=== PATIENT | male | born 1935 | race Caucasian/White ===

== ENCOUNTER 2019-03-02 08:51 | Inpatient (IN) | payer MEDICARE, BC ==
[~2019-03-02] VITALS: Ht 170.2 cm; Wt 72.6 kg
[~2019-03-02 08:51] MED LIST: ATOR20TA PO; GLIP10TA11 PO; [UNRECOGNIZED DRUG - OTHER] SQ
--- NOTE | 2019-03-02 08:55 | NUR ---
Dr Oquendo at the bedside for MSE.
[2019-03-02] MEDS ORDERED: MORPHINE SULFATE 2 MG/1 ML DISP.SYRIN IM ONE (09:00)
[2019-03-02] MEDS ORDERED: MORPHINE SULFATE 4 MG/1 ML DISP.SYRIN ONE (09:08)
[2019-03-02] MEDS ORDERED: MORPHINE SULFATE 2 MG/1 ML DISP.SYRIN ONE (09:08)
--- NOTE | 2019-03-02 09:42 | NUR ---
pt here but is not sure about the meds and dosages. will go back home and bring the meds bottles.
[2019-03-02 09:58] LABS: BASOPHILS % (AUTO) 0.4 % (0.0-2.0); CARBON DIOXIDE 24 mmol/L (21-32); CHLORIDE 107 mmol/L (98-107); CREATININE 2.7 mg/dL (0.6-1.3); EOSINOPHILS # (AUTO) 0.3 K/uL (0.0-0.7); EOSINOPHILS % (AUTO) 3.5 % (0.0-7.0); GLUCOSE 159 mg/dL (74-106); HEMATOCRIT 36.5 % (36.7-47.1); LYMPHOCYTES # (AUTO) 1.1 K/uL (20.0-40.0); LYMPHOCYTES % (AUTO) 11.7 % (20.5-51.5); MEAN CORPUSCULAR HGB CONC 33 g/dL (32.5-36.3); MEAN CORPUSCULAR VOLUME 91.4 fL (73.0-96.2); MONOCYTES # (AUTO) 0.6 K/uL (2.0-10.0); MONOCYTES % (AUTO) 6.1 % (0.0-11.0); NEUTROPHILS # (AUTO) 7.6 K/uL (1.8-8.9); NEUTROPHILS % (AUTO) 78.3 % (38.5-71.5); PLATELET COUNT (AUTO) 203 K/uL (152-348); POTASSIUM 4.2 mmol/L (3.5-5.1); RED BLOOD CELL COUNT(AUTO) 3.99 MIL/uL (4.06-5.63); UREA NITROGEN, BLOOD 45 mg/dL (7-18); WHITE BLOOD COUNT (AUTO) 9.7 K/uL (3.6-10.2)
--- NOTE | 2019-03-02 10:09 | NUR ---
Patient is resting comfortably in bed with eyes closed.NAD noted.
--- NOTE | 2019-03-02 10:12 | NUR ---
Paged [employer], awaiting call back from Dr Hess.
[2019-03-02 10:14] LABS: ALANINE AMINOTRANSFERASE 13 U/L (16-63); ALKALINE PHOSPHATASE 92 U/L (50-136); ASPARTATE AMINOTRANSFERASE 8 U/L (15-37); BILIRUBIN,DIRECT 0.1 mg/dL (0.0-0.2); BILIRUBIN,TOTAL 0.5 mg/dL (0.2-1.0); TOTAL PROTEIN, SERUM 7.3 g/dL (6.4-8.2)
--- NOTE | 2019-03-02 10:14 | NUR ---
Dr Hess called back and spoke to Dr Oquendo for admit.
[2019-03-02] MEDS ORDERED: HYDROMORPHONE 1 MG/1 ML DISP.SYRIN ONE (10:20)
--- NOTE | 2019-03-02 10:23 | NUR ---
Paged Dr Thomas for Orth consult.
[2019-03-02] MEDS ORDERED: HYDROMORPHONE 1 MG/1 ML DISP.SYRIN IV ONE (10:30)
[2019-03-02] MEDS ORDERED: ONDANSETRON 4 MG/2 ML VIAL IV PRN (10:30)
[2019-03-02] MEDS ORDERED: ACETAMINOPHEN 325 MG TABLET PO PRN (10:30)
[2019-03-02] MEDS ORDERED: Z GUARD REMEDY PASTE 57 GM TUBE TOP PRN (10:30)
[2019-03-02] MEDS ORDERED: MAGNESIUM HYDROXIDE 30 ML LIQUID UDC PO PRN (10:30)
[2019-03-02] MEDS ORDERED: HYDROCODONE/APAP 5-325MG TABLET PO PRN (10:30)
--- NOTE | 2019-03-02 10:42 | NUR ---
Dr Oquendo states there is no indication to insert F/C for pt at this point.
[2019-03-02] MEDS ORDERED: HUM10VIA3 SUBCUT (10:47)
[2019-03-02] MEDS ORDERED: CARV3.122 PO (10:47)
[2019-03-02] MEDS ORDERED: ATOR40TA PO (10:47)
[2019-03-02] MEDS ORDERED: CLOP75TA15 PO (10:47)
[2019-03-02] MEDS ORDERED: GLIM1TAB3 PO (10:47)
[2019-03-02 11:00] VITALS: BP 209/87
--- NOTE | 2019-03-02 11:00 | NUR ---
RECEIVED PATIENT FOR ADMISSION 83 YEARS OLD MALE BY [facility] WITH DX OF LEFT HIP FRACTURE PLACED INTO BED FIXED AND MADE COMFORTABLE PATIENT IS ALERT AND ORIENTED STATED THAT AT TIMES HE IS FORGETFUL BUT NOT NOTED AT THIS TIME.LEFT FOREARM WITH HEPLOCK INTACT WITH NO S/S OF INFILTERATION ON SITE PATIENTS GIRLFRIEND GRAYSON HERE AT THE BEDSIDE AND ASSISTED WITH THE ADMISSION QUESTIONAIRES ORIENTED TO HOSPITAL PROTOCOL MADE COMFORTABLE CALLED DR ESTEVES AND LEFT HIM A MESSAGE FOR ADMISSION ORDERS WILL CONTINUE TO OBSERVE.
[2019-03-02 15:18] VITALS: BP 136/70
--- NOTE | 2019-03-02 18:11 | NUR ---
RESTING DENIES DISCOMFORTS STATED OKAY AT THIS TIME WILL CONTINUE TO OBSERVE
[2019-03-02 19:48] VITALS: BP 129/74
[2019-03-02] MEDS ORDERED: DEXTROSE 50% 50 ML DISP.SYRIN IV PRN (20:15)
[2019-03-02] MEDS: MORPHINE SULFATE 2 MG/1 ML DISP.SYRIN IV PRN (20:20)
[2019-03-02] MEDS: IV 1/2NS 1000 ML 1,000 ML IV PRN (20:21)
[2019-03-02] MEDS: BLOOD SUGAR DIAGNOSTIC 1 EACH STRIP VI SCH (20:34)
[2019-03-02] MEDS: INSULIN REGULAR, HUMAN 300 UNIT/3 ML VIAL SQ PRN (20:39)
[2019-03-02] MEDS ORDERED: TEMAZEPAM 7.5 MG CAPSULE PO ONE (21:00)
[2019-03-03] VITALS: BP 132/70
[2019-03-03] MEDS: MORPHINE SULFATE 2 MG/1 ML DISP.SYRIN IV PRN ×5 (00:55→22:53)
[2019-03-03 04:05] VITALS: BP 114/59
[2019-03-03 06:26] LABS: BASOPHILS % (AUTO) 0.2 % (0.0-2.0); EOSINOPHILS # (AUTO) 0.1 K/uL (0.0-0.7); HEMATOCRIT 29.6 % (36.7-47.1); HEMOGLOBIN 9.6 g/dL (12.5-16.3); LYMPHOCYTES # (AUTO) 1.2 K/uL (20.0-40.0); MEAN CORPUSCULAR HEMOGLOBIN 29.8 uug (23.8-33.4); MEAN CORPUSCULAR HGB CONC 33 g/dL (32.5-36.3); MEAN CORPUSCULAR VOLUME 91.5 fL (73.0-96.2); MONOCYTES # (AUTO) 1.2 K/uL (2.0-10.0); MONOCYTES % (AUTO) 10.7 % (0.0-11.0); NEUTROPHILS # (AUTO) 8.7 K/uL (1.8-8.9); NEUTROPHILS % (AUTO) 77.1 % (38.5-71.5); PLATELET COUNT (AUTO) 171 K/uL (152-348); RED BLOOD CELL COUNT(AUTO) 3.23 MIL/uL (4.06-5.63); WHITE BLOOD COUNT (AUTO) 11.3 K/uL (3.6-10.2)
[2019-03-03 06:41] LABS: ALANINE AMINOTRANSFERASE 12 U/L (16-63); ALKALINE PHOSPHATASE 61 U/L (50-136); ASPARTATE AMINOTRANSFERASE 9 U/L (15-37); BILIRUBIN,TOTAL 0.6 mg/dL (0.2-1.0); CARBON DIOXIDE 26 mmol/L (21-32); CHLORIDE 106 mmol/L (98-107); CHOLESTEROL 153 mg/dL (<200); CREATININE 2.8 mg/dL (0.6-1.3); GLUCOSE 165 mg/dL (74-106); HDL CHOLESTEROL 47 mg/dL (40-60); MAGNESIUM 2.1 mg/dL (1.8-2.4); PHOSPHOROUS 3.9 mg/dL (2.5-4.9); POTASSIUM 5.1 mmol/L (3.5-5.1); TOTAL PROTEIN, SERUM 6.1 g/dL (6.4-8.2); TRIGLYCERIDES 103 MG/DL (30-150); UREA NITROGEN, BLOOD 54 mg/dL (7-18)
[2019-03-03] MEDS: BLOOD SUGAR DIAGNOSTIC 1 EACH STRIP VI SCH ×4 (06:43→21:33)
--- NOTE | 2019-03-03 06:48 | NUR ---
Patient slept well throughout the night, no distress noted. With complaints of pain relieved by prn pain medications. Attended all needs. Insulin sliding scale was started as ordered by medical provider, patient's questions about medication addressed. Ensured safety and comfort.
--- NOTE | 2019-03-03 07:15 | NUR ---
RECEIVED PATIENT AWAKE ALERT AND ORIENTED ASSISTED WITH REPOSITIONING Q2H REMAIN ON IVF ORDERED WITH NO S/S OF INFILTERATION ON SITE LEFT HIP S/P FRACTURE AWAITING FOR DR HENDERSON TO SEE PATIENT TODAY.IVF IN PROGRESS ORDERED WITH NO S/S OF INFILTERATION ON SITE CALL LIGHTS AND PERSONAL BELONGINGS ARE WITHIN EASY REACH AT THIS TIME WILL CONTINUE TO OBSERVE.
[2019-03-03 07:22] LABS: THYROID STIMULATING HORMONE 1.696 mIU/mL (0.358-3.740)
[2019-03-03] MEDS: INSULIN REGULAR, HUMAN 300 UNIT/3 ML VIAL SQ PRN ×2 (08:51→16:48)
[2019-03-03] MEDS: IV 1/2NS 1000 ML 1,000 ML IV PRN ×2 (09:37→21:43)
[2019-03-03 11:30] VITALS: BP 108/53
--- NOTE | 2019-03-03 11:39 | NUR ---
BLOOD SUGAR IS 139 PATIENT IS NPO AT THIS TIME WITH HALF NS RUNNING PATIENT REFUSED INSULIN COVERAGE PATIENTS RIGHT TO REFUSE RESPECTED.
--- NOTE | 2019-03-03 12:45 | NUR ---
CALL RECEIVED FROM YVES FROM SURGERY STATED THAT PATIENTS SURGERY HAS BEEN CANCELLED TODAY WILL BE TOMORROW TO FOLLOW AFTER HIS 1000 CASE PATIENT NOTIFIED AND LUNCH SERVED.
--- NOTE | 2019-03-03 13:45 | NUR ---
DR HENDERSON HERE SPOKE WITH PATIENT AND WROTE OUT ORDER TO OBTAIN CONSCENT PATIENT AWARE AND CONSCENT OBTAINED FOR PROPOSED SURGERY TOMORROW.
[2019-03-03 16:14] VITALS: BP 122/43
[2019-03-03 16:56] LABS: *BILIRUBIN,URIN NEGATIVE (NEGATIVE); *BLOOD, URINE 2+ (NEGATIVE); *CLARITY,URINE CLEAR (CLEAR); *COLOR,URINE YELLOW (YELLOW); *KETONES,URINE NEGATIVE (NEGATIVE); *UROBILINOGEN,URINE 0.2 E.U./dl (NORMAL); LEUKOCYTE ESTERASE ,URINE NEGATIVE (NEGATIVE); NITRITE, URINE NEGATIVE (NEGATIVE); PH,URINE 5.5 (5.0-8.0); UGLUCOSE NEGATIVE (NEGATIVE)
[2019-03-03 17:04] LABS: MUCUS,URINE FEW /LPF (0-FEW); SQUAMOUS EPITHELIAL CELL,UR FEW /HPF (NONE SEEN); WBC,URINE 0-3 /HPF (0-3)
[2019-03-03 17:07] LABS: *CREATININE,URINE 95.6 mg/dL (30-125)
[2019-03-03 18:23] LABS: HEMATOCRIT 28.3 % (36.7-47.1); HEMOGLOBIN 9.1 g/dL (12.5-16.3)
[2019-03-03 19:53] VITALS: BP 141/67
[2019-03-03] MEDS ORDERED: TEMAZEPAM 7.5 MG CAPSULE PO PRN (21:30)
[2019-03-03] MEDS ORDERED: DEXTROSE 50% 50 ML DISP.SYRIN IV PRN (21:45)
[2019-03-03] MEDS ORDERED: INSULIN REGULAR, HUMAN 300 UNIT/3 ML VIAL SQ PRN (21:45)
[2019-03-04] VITALS (9 sets, daily range): BP systolic 123–146; BP diastolic 55–69
[2019-03-04] MEDS: MORPHINE SULFATE 2 MG/1 ML DISP.SYRIN IV PRN ×2 (03:55→08:32)
[2019-03-04] MEDS: BLOOD SUGAR DIAGNOSTIC 1 EACH STRIP VI SCH ×4 (06:11→21:00)
--- NOTE | 2019-03-04 06:25 | NUR ---
pt rested well in between care; no acute distress; kept NPO fr midnight; medicated for pain; occasionally refusing to be turned; apply ice to to left hip; needs attended; refused condom cath; at this time pt refused to have his pad changed; continue to monitor; continue plan of care.
[2019-03-04 06:37] LABS: BASOPHILS % (AUTO) 0.3 % (0.0-2.0); EOSINOPHILS # (AUTO) 0.1 K/uL (0.0-0.7); HEMATOCRIT 30.3 % (36.7-47.1); HEMOGLOBIN 9.8 g/dL (12.5-16.3); LYMPHOCYTES % (AUTO) 8.6 % (20.5-51.5); MEAN CORPUSCULAR HEMOGLOBIN 29.7 uug (23.8-33.4); MEAN CORPUSCULAR HGB CONC 33 g/dL (32.5-36.3); MEAN CORPUSCULAR VOLUME 91.4 fL (73.0-96.2); MONOCYTES # (AUTO) 1.4 K/uL (2.0-10.0); MONOCYTES % (AUTO) 11.9 % (0.0-11.0); NEUTROPHILS # (AUTO) 9.1 K/uL (1.8-8.9); NEUTROPHILS % (AUTO) 78.2 % (38.5-71.5); PLATELET COUNT (AUTO) 161 K/uL (152-348); RED BLOOD CELL COUNT(AUTO) 3.32 MIL/uL (4.06-5.63); WHITE BLOOD COUNT (AUTO) 11.6 K/uL (3.6-10.2)
[2019-03-04 06:49] LABS: ALANINE AMINOTRANSFERASE 12 U/L (16-63); ALKALINE PHOSPHATASE 63 U/L (50-136); ASPARTATE AMINOTRANSFERASE 10 U/L (15-37); BILIRUBIN,TOTAL 0.6 mg/dL (0.2-1.0); CARBON DIOXIDE 25 mmol/L (21-32); CHLORIDE 103 mmol/L (98-107); GLUCOSE 161 mg/dL (74-106); PHOSPHOROUS 3.7 mg/dL (2.5-4.9); POTASSIUM 4.6 mmol/L (3.5-5.1); TOTAL PROTEIN, SERUM 6.5 g/dL (6.4-8.2); UREA NITROGEN, BLOOD 62 mg/dL (7-18)
--- NOTE | 2019-03-04 07:10 | NUR ---
RECEIVED PATIENT IN BED AWAKE ALERT AND ORIENTED REMAIN ON IVF ORDERED WITH NO S/S OF INFILTERATION ON SITE.PATIENT REMAINS NPO PENDING HIP SURGERY TODAY REINSTRUCTED AND AWARE CALL LIGHTS AND PERSONAL BELONGINGS PLACED WITHIN EASY REACH MADE COMFORTABLE AND WILL CONTINUE TO OBSERVE.
[2019-03-04] MEDS ORDERED: POLYMYXIN B SULFATE 500,000 UNITS, BACITRACIN 50,000 UNITS, NORMAL SALINE 20 ML MC ONE ×3 (07:45)
[2019-03-04] MEDS ORDERED: VANCOMYCIN 1000 MG VIAL ONE (08:18)
[2019-03-04] MEDS ORDERED: FENTANYL CITRATE 100 MCG/2 ML AMPUL ONE ×2 (09:56→12:01)
--- NOTE | 2019-03-04 10:00 | NUR ---
PATIENT PICKED UP BY BED TO SURGERY ORDERED IN SATISFACTORY CONDITION
[2019-03-04] MEDS ORDERED: CEFAZOLIN 1 G VIAL IM ONE (11:35)
[2019-03-04] MEDS ORDERED: SUCCINYLCHOLINE CHLORIDE 200 MG/10 ML VIAL IV ONE (11:35)
[2019-03-04] MEDS ORDERED: LIDOCAINE-MPF 2% 5 ML VIAL IJ ONE (11:35)
[2019-03-04] MEDS ORDERED: PROPOFOL 200 MG/20 ML BOTTLE IV ONE (11:35)
[2019-03-04] MEDS ORDERED: EPHEDRINE SULFATE 50 MG/ML AMPUL IM ONE (11:35)
[2019-03-04] MEDS ORDERED: IV NORMAL SALINE 1000 ML BAG IV ONE (11:35)
[2019-03-04] MEDS ORDERED: ONDANSETRON 4 MG/2 ML VIAL ONE (12:41)
--- NOTE | 2019-03-04 12:50 | NUR ---
PATIENT RETURNED BACK FROM SURGERY BY BED AWAKE ALERT AND ORIENTED WITH O2 AT 2L/M BY NASAL CANULA WITH NO SHORTNESS OF BREATH AT THIS TIME LEFT HIP WITH DRESSING INTACT AND A MEPILEX ON THE LEFT THIGH WITH NO DRAINAGE AT THIS TIME CIRCULATION IS ADEQUATE ABLE TO WIGGLE TOES MADE COMFORTABLE AND WILL CONTINUE TO OBSERVE.
[2019-03-04] MEDS ORDERED: CEFAZOLIN 1 G in PREMIXED 1 EACH IV SCH ×2 (13:00→14:00)
[2019-03-04] MEDS: MORPHINE SULFATE 4 MG/1 ML DISP.SYRIN IV PRN ×3 (13:43→21:05)
[2019-03-04] MEDS: IV D5W-0.45% NS +20 KCL 1,000 ML IV PRN (13:43)
--- NOTE | 2019-03-04 13:45 | NUR ---
PATIENT STATED HAVING SEVERE PAIN LEFT HIP ICE PACK IS IN PLACE MEDICATED WITH MORPHINE ORDERED TOLERATING SOME FLUIDS STATED NOT HUNGRY AT THIS TIME.
[2019-03-04] MEDS ORDERED: DEXTROSE 50% 50 ML DISP.SYRIN IV PRN (16:30)
[2019-03-04] MEDS: INSULIN REGULAR, HUMAN 300 UNIT/3 ML VIAL SQ PRN ×2 (16:39→21:05)
[2019-03-04] MEDS: CEFAZOLIN 1 G in PREMIXED 1 EACH IV SCH (17:14)
--- NOTE | 2019-03-04 18:00 | NUR ---
RESTING WAS MEDICATED WITH MORPHINE AND THEN TURNED AND REPOSITIONED IV ATB ORDERED WITH NO ADVERSE OR ALLERGIC REACTIONS AT THIS TIME.
--- NOTE | 2019-03-04 19:20 | NUR ---
RECEIVED PT AWAKE, ALERT AND ORIENTED X4. PT SHOWS NO SIGNS OF ACUTE DISTRESS. IV INTACT. SAFETY AND COMFORT PROVIDED. WILL CONTINUE TO MONITOR.
[2019-03-04] MEDS: ATORVASTATIN 40 MG TABLET PO SCH (20:58)
[2019-03-05 00:20] VITALS: BP 130/66
[2019-03-05] MEDS: CEFAZOLIN 1 G in PREMIXED 1 EACH IV SCH (01:21)
[2019-03-05 04:29] VITALS: BP 135/60
[2019-03-05] MEDS: IV D5W-0.45% NS +20 KCL 1,000 ML IV PRN ×2 (04:43→19:01)
[2019-03-05] MEDS: MORPHINE SULFATE 4 MG/1 ML DISP.SYRIN IV PRN ×3 (04:48→21:38)
--- NOTE | 2019-03-05 05:58 | NUR ---
PT SLEPT INTERMITTENTLY. PT SHOWS NO SIGNS OF ACUTE DISTRESS. PT IV INTACT. INCENTIVE SPIROMETER GIVEN AND TEACH THE PT HOW TO DO IT. SAFETY AND COMFORT PROVIDED. PRESCRIBED MEDICATION GIVEN AND PT TOLERATED IT WELL. ALL NEEDS ARE MET. WILL ENDORSE TO INCOMING NURSE FOR CONTINUITY OF CARE.
[2019-03-05 06:30] LABS: HEMATOCRIT 26.9 % (36.7-47.1); HEMOGLOBIN 8.9 g/dL (12.5-16.3)
[2019-03-05] MEDS: BLOOD SUGAR DIAGNOSTIC 1 EACH STRIP VI SCH ×4 (06:37→20:06)
[2019-03-05] MEDS: ASPIRIN EC 81 MG TABLET.DR PO SCH (08:28)
[2019-03-05] MEDS: INSULIN REGULAR, HUMAN 300 UNIT/3 ML VIAL SQ PRN ×4 (08:30→20:08)
[2019-03-05] MEDS: HYDROCODONE/APAP 10-325 MG TABLET PO PRN (09:18)
[2019-03-05 11:30] VITALS: BP 123/52
[2019-03-05] MEDS ORDERED: ENOXAPARIN SODIUM 40 MG/0.4 ML DISP.SYRIN SQ SCH (13:15)
[2019-03-05] MEDS: ENOXAPARIN SODIUM 30 MG/0.3 ML DISP.SYRIN SUBCUT SCH (14:21)
[2019-03-05 16:10] VITALS: BP 139/61
--- NOTE | 2019-03-05 18:39 | NUR ---
Patient AO4, No distress, stood up with PT today, ROM is done , pain med was given in the am after patient said I dont want to take med yet, slept on an off, icing on the leg help. bs maintained with insulin, safety maintained this shift
--- NOTE | 2019-03-05 19:20 | NUR ---
RECEIVED PATIENT LYING IN BED. ASLEEP BUT EASILY AROUSE TO VERBAL STIMULI. AOX4. IN NO ACUTE DISTRESS. APPEARS COMFORTABLE AT THIS TIME. IV SITE ON RIGHT WRIST INTACT AND PATENT. IVF INFUSING. SAFETY MEASURE INITIATED AND CALL [facility] WITHIN REACH.
[2019-03-05 20:00] VITALS: BP 124/63
--- NOTE | 2019-03-05 20:00 | NUR ---
PATIENT O2 SAT AT 88% ON RA. PLACE ON O2 AT 2LPM VIA NC AND O2 SAT INCREASED TO 95%. HOB KEPT SLIGHTLY ELEVATED. CONTINUE TO MONITOR.
[2019-03-05] MEDS: ATORVASTATIN 40 MG TABLET PO SCH (20:01)
[2019-03-06] VITALS: BP 124/66
[2019-03-06 05:24] VITALS: BP 135/67
--- NOTE | 2019-03-06 06:19 | NUR ---
AOX4. IN NO ACUTE DISTRESS. O2 AT 2LPM VIA NC IN PLACE. O2 SAT AT 95%. IV SITE ON RIGHT WRIST INTACT AND PATENT. IVF INFUSING. LEFT HIP WITH DRESSING INTACT. MORPHINE PRN GIVEN FOR COMPLAIN OF PAIN AND EFFECTIVE. SAFETY MEASURE MAINTAINED AND CALL [facility] WITHIN REACH.
[2019-03-06 06:43] LABS: BASOPHILS % (AUTO) 0.3 % (0.0-2.0); EOSINOPHILS % (AUTO) 0.3 % (0.0-7.0); HEMATOCRIT 27.7 % (36.7-47.1); LYMPHOCYTES # (AUTO) 0.7 K/uL (20.0-40.0); LYMPHOCYTES % (AUTO) 5.3 % (20.5-51.5); MEAN CORPUSCULAR HEMOGLOBIN 30.5 uug (23.8-33.4); MEAN CORPUSCULAR HGB CONC 32 g/dL (32.5-36.3); MONOCYTES # (AUTO) 1.4 K/uL (2.0-10.0); MONOCYTES % (AUTO) 11.3 % (0.0-11.0); NEUTROPHILS # (AUTO) 10.5 K/uL (1.8-8.9); NEUTROPHILS % (AUTO) 82.8 % (38.5-71.5); PLATELET COUNT (AUTO) 182 K/uL (152-348); RED BLOOD CELL COUNT(AUTO) 2.95 MIL/uL (4.06-5.63); WHITE BLOOD COUNT (AUTO) 12.7 K/uL (3.6-10.2)
[2019-03-06] MEDS: BLOOD SUGAR DIAGNOSTIC 1 EACH STRIP VI SCH ×2 (06:58→12:31)
[2019-03-06 07:02] LABS: ALKALINE PHOSPHATASE 75 U/L (50-136); BILIRUBIN,TOTAL 0.5 mg/dL (0.2-1.0); CHLORIDE 101 mmol/L (98-107); MAGNESIUM 1.9 mg/dL (1.8-2.4); POTASSIUM 5.6 mmol/L (3.5-5.1); TOTAL PROTEIN, SERUM 6.6 g/dL (6.4-8.2); UREA NITROGEN, BLOOD 67 mg/dL (7-18)
[2019-03-06 07:16] LABS: ALANINE AMINOTRANSFERASE 6 U/L (16-63); ASPARTATE AMINOTRANSFERASE 10 U/L (15-37); CARBON DIOXIDE 20 mmol/L (21-32); CREATININE 3.2 mg/dL (0.6-1.3)
[2019-03-06 07:19] LABS: GLUCOSE 301 mg/dL (74-106)
--- NOTE | 2019-03-06 07:20 | NUR ---
CALL FROM LAB/MARY FOR CRITICAL LAB VALUE FOR GLUCOSE OF 301. CARMELITA RILEY FROM DAY SHIFT MADE AWARE AND INSTRUCTED TO FOLLOW UP WITH MD AND STATES UNDERSTANDING.
[2019-03-06] MEDS ORDERED: SODIUM POLYSTYRENE SULFONATE 15 G/60 ML LIQUID UDC PO ONE (08:00)
--- NOTE | 2019-03-06 08:00 | NUR ---
Received pt. resting in bed alert oriented x4. Pt. has IV in R wrist 22 gauge intact patent. Pt. on room air. Pt. states he has pain in l hip. Will assess pain and give PRN pain medication. Safety measures in place. call light within reach. will continue to monitor pt.
[2019-03-06] MEDS: ENOXAPARIN SODIUM 30 MG/0.3 ML DISP.SYRIN SUBCUT SCH (08:45)
[2019-03-06] MEDS: INSULIN REGULAR, HUMAN 300 UNIT/3 ML VIAL SQ PRN ×2 (08:46→12:37)
[2019-03-06] MEDS: HYDROCODONE/APAP 10-325 MG TABLET PO PRN (08:47)
[2019-03-06] MEDS: ASPIRIN EC 81 MG TABLET.DR PO SCH (08:47)
--- NOTE | 2019-03-06 09:30 | NUR ---
Critical lab value of glucose reported to ACTING INSTRUCTOR Amauri Brooks. No new orders
[2019-03-06] MEDS ORDERED: Morphine Sulfate Inj IV (11:29)
[2019-03-06] MEDS ORDERED: HYDR-3980 PO (11:29)
[2019-03-06] MEDS ORDERED: ENOX30DI SUBCUT (11:29)
[2019-03-06 11:51] VITALS: BP 128/60
[2019-03-06] MEDS ORDERED: ENSURE ENLIVE (VAN) 240 ML LIQUID PO SCH (12:15)
--- NOTE | 2019-03-06 13:31 | NUR ---
Pt. to be discharged to ARU. Pt. had PT twice today and will be discharged to ARU later today. All discharge paperwork signed and completed. All belongings sent home with significant other. Belongings list signed. Will call ARU to give report. Pt. compliant with plan of care and is updated on plan.
--- NOTE | 2019-03-06 13:48 | NUR ---
report given to CARMELITA izaguirre in ARU.
== END 2019-03-06 14:15 | DRG 480 ==
LOC: ER 08:53 → MEDSURG3 10:32 → TELE3 11:33 → MEDSURG3 03-05 14:00
PROVIDERS: ADMIT Internal Medicine; ATTEND Internal Medicine
PROC: 0QS706Z Reposition Left Upper Femur with Intramedullary Internal Fixation Device, Open Approach (ICD-10-PCS; principal; 2019-03-04)
DX: M80.052A Age-related osteoporosis with current pathological fracture, left femur, initial encounter for fracture (principal); N17.0 Acute kidney failure with tubular necrosis; E87.1 Hypo-osmolality and hyponatremia; N18.4 Chronic kidney disease, stage 4 (severe); W01.0XXA Fall on same level from slipping, tripping and stumbling without subsequent striking against object, initial encounter; Y93.H2 Activity, gardening and landscaping; Y92.017 Garden or yard in single-family (private) house as the place of occurrence of the external cause; E78.5 Hyperlipidemia, unspecified; E11.22 Type 2 diabetes mellitus with diabetic chronic kidney disease; I12.9 Hypertensive chronic kidney disease with stage 1 through stage 4 chronic kidney disease, or unspecified chronic kidney disease; Z79.84 Long term (current) use of oral hypoglycemic drugs; E11.319 Type 2 diabetes mellitus with unspecified diabetic retinopathy without macular edema; N25.0 Renal osteodystrophy; E11.51 Type 2 diabetes mellitus with diabetic peripheral angiopathy without gangrene; Z98.62 Peripheral vascular angioplasty status; I25.10 Atherosclerotic heart disease of native coronary artery without angina pectoris; I45.10 Unspecified right bundle-branch block; E87.5 Hyperkalemia; Z79.899 Other long term (current) drug therapy; Z91.81 History of falling; Z79.82 Long term (current) use of aspirin; D64.9 Anemia, unspecified
CPT/HCPCS: 36415; 70030-TC; 71045; 73502; 73503; 83735; 84100; 84156; 84300; 84443; 85014; 85018; 85025; 85730; 93005; 93307; A4649; A4663; C1769; G0378; J0330; J0690; J1170; J1650; J1815; J2270; J2405; J3010; J3370; J3490; J7030

== ENCOUNTER 2019-03-06 14:22 | Inpatient (IN) | payer MEDICARE, BC ==
[~2019-03-06] VITALS: Ht 170.2 cm; Wt 72.6 kg
[~2019-03-06 14:22] MED LIST changes: +ATOR40TA PO; +CARV3.122 PO; +CLOP75TA15 PO; +ENOX30DI SUBCUT; +GLIM1TAB3 PO; +HUM10VIA3 SUBCUT; +HYDR-3980 PO; +Morphine Sulfate Inj IV
[2019-03-06 16:47] VITALS: BP 129/63
[2019-03-06] MEDS ORDERED: DEXTROSE 50% 50 ML DISP.SYRIN IV PRN (17:15)
[2019-03-06] MEDS: HYDROCODONE/APAP 10-325 MG TABLET PO PRN (18:09)
[2019-03-06] MEDS ORDERED: MAGNESIUM HYDROXIDE 30 ML LIQUID UDC PO PRN (19:30)
[2019-03-06 20:11] VITALS: BP 147/60
[2019-03-06] MEDS: ATORVASTATIN 40 MG TABLET PO SCH (21:26)
[2019-03-06] MEDS: BISACODYL 10 MG SUPP.RECT RC PRN (21:26)
[2019-03-06] MEDS: DOCUSATE SODIUM 100 MG CAPSULE PO SCH (21:26)
[2019-03-06] MEDS: BLOOD SUGAR DIAGNOSTIC 1 EACH STRIP VI SCH (21:29)
[2019-03-06] MEDS: INSULIN REGULAR, HUMAN 300 UNIT/3 ML VIAL SQ PRN (21:30)
[2019-03-07] MEDS: HYDROCODONE/APAP 10-325 MG TABLET PO PRN ×4 (03:28→17:17)
[2019-03-07 05:39] VITALS: BP 142/70
[2019-03-07] MEDS: BLOOD SUGAR DIAGNOSTIC 1 EACH STRIP VI SCH ×4 (06:31→20:23)
[2019-03-07 07:49] LABS: BASOPHILS % (AUTO) 0.1 % (0.0-2.0); EOSINOPHILS % (AUTO) 0.2 % (0.0-7.0); HEMATOCRIT 25.3 % (36.7-47.1); HEMOGLOBIN 8.3 g/dL (12.5-16.3); LYMPHOCYTES # (AUTO) 0.8 K/uL (20.0-40.0); LYMPHOCYTES % (AUTO) 5.1 % (20.5-51.5); MEAN CORPUSCULAR HGB CONC 33 g/dL (32.5-36.3); MEAN CORPUSCULAR VOLUME 91.5 fL (73.0-96.2); MONOCYTES # (AUTO) 1.4 K/uL (2.0-10.0); MONOCYTES % (AUTO) 8.9 % (0.0-11.0); NEUTROPHILS # (AUTO) 13.5 K/uL (1.8-8.9); NEUTROPHILS % (AUTO) 85.7 % (38.5-71.5); PLATELET COUNT (AUTO) 227 K/uL (152-348); RED BLOOD CELL COUNT(AUTO) 2.76 MIL/uL (4.06-5.63); WHITE BLOOD COUNT (AUTO) 15.8 K/uL (3.6-10.2)
[2019-03-07 07:58] LABS: CARBON DIOXIDE 22 mmol/L (21-32); CHLORIDE 102 mmol/L (98-107); GLUCOSE 221 mg/dL (74-106); POTASSIUM 4.2 mmol/L (3.5-5.1); UREA NITROGEN, BLOOD 70 mg/dL (7-18)
[2019-03-07 08:00] VITALS: BP 137/72
[2019-03-07] MEDS: DOCUSATE SODIUM 100 MG CAPSULE PO SCH ×2 (08:30→20:23)
[2019-03-07] MEDS: CARVEDILOL 3.125 MG TABLET PO SCH ×2 (08:30→17:16)
[2019-03-07] MEDS: CLOPIDOGREL 75 MG TABLET PO SCH (08:31)
[2019-03-07] MEDS: glipiZIDE 10 MG TABLET PO SCH (08:31)
[2019-03-07] MEDS: INSULIN REGULAR, HUMAN 300 UNIT/3 ML VIAL SQ PRN ×4 (08:46→20:24)
[2019-03-07] MEDS: ENOXAPARIN SODIUM 30 MG/0.3 ML DISP.SYRIN SUBCUT SCH (08:48)
[2019-03-07 18:08] LABS: *BILIRUBIN,URIN NEGATIVE (NEGATIVE); *BLOOD, URINE 2+ (NEGATIVE); *CLARITY,URINE CLEAR (CLEAR); *COLOR,URINE YELLOW (YELLOW); *KETONES,URINE NEGATIVE (NEGATIVE); *UROBILINOGEN,URINE 0.2 E.U./dl (NORMAL); LEUKOCYTE ESTERASE ,URINE NEGATIVE (NEGATIVE); NITRITE, URINE NEGATIVE (NEGATIVE); UGLUCOSE NEGATIVE (NEGATIVE)
[2019-03-07 18:21] LABS: BACTERIA,URINE FEW /HPF (NONE SEEN); WBC,URINE 0-3 /HPF (0-3)
[2019-03-07 18:22] LABS: URINE AMORPHOUS PHOSPHATES FEW /HPF
[2019-03-07 19:53] VITALS: BP 122/53
[2019-03-07] MEDS: ATORVASTATIN 40 MG TABLET PO SCH (20:23)
[2019-03-08 04:45] VITALS: BP 129/53
[2019-03-08 05:48] LABS: BASOPHILS % (AUTO) 0.2 % (0.0-2.0); EOSINOPHILS # (AUTO) 0.2 K/uL (0.0-0.7); EOSINOPHILS % (AUTO) 1.2 % (0.0-7.0); HEMATOCRIT 24.3 % (36.7-47.1); LYMPHOCYTES # (AUTO) 0.9 K/uL (20.0-40.0); MEAN CORPUSCULAR HGB CONC 33 g/dL (32.5-36.3); MEAN CORPUSCULAR VOLUME 91.6 fL (73.0-96.2); MONOCYTES # (AUTO) 1.2 K/uL (2.0-10.0); MONOCYTES % (AUTO) 8.4 % (0.0-11.0); NEUTROPHILS # (AUTO) 12.1 K/uL (1.8-8.9); NEUTROPHILS % (AUTO) 84.2 % (38.5-71.5); PLATELET COUNT (AUTO) 266 K/uL (152-348); RED BLOOD CELL COUNT(AUTO) 2.65 MIL/uL (4.06-5.63); WHITE BLOOD COUNT (AUTO) 14.4 K/uL (3.6-10.2)
[2019-03-08 05:49] LABS: CARBON DIOXIDE 23 mmol/L (21-32); CHLORIDE 102 mmol/L (98-107); CREATININE 3.4 mg/dL (0.6-1.3); GLUCOSE 131 mg/dL (74-106); POTASSIUM 4.2 mmol/L (3.5-5.1)
[2019-03-08 06:00] LABS: UREA NITROGEN, BLOOD 82 mg/dL (7-18)
[2019-03-08] MEDS: BLOOD SUGAR DIAGNOSTIC 1 EACH STRIP VI SCH ×4 (06:37→20:39)
[2019-03-08] MEDS: HYDROCODONE/APAP 10-325 MG TABLET PO PRN ×3 (06:48→17:21)
[2019-03-08 08:00] VITALS: BP 126/58
[2019-03-08] MEDS: ENOXAPARIN SODIUM 30 MG/0.3 ML DISP.SYRIN SUBCUT SCH (08:17)
[2019-03-08] MEDS: CARVEDILOL 3.125 MG TABLET PO SCH ×2 (08:22→17:19)
[2019-03-08] MEDS: CLOPIDOGREL 75 MG TABLET PO SCH (08:23)
[2019-03-08] MEDS: DOCUSATE SODIUM 100 MG CAPSULE PO SCH ×2 (08:23→20:31)
[2019-03-08] MEDS: glipiZIDE 10 MG TABLET PO SCH (08:29)
[2019-03-08] MEDS: INSULIN REGULAR, HUMAN 300 UNIT/3 ML VIAL SQ PRN ×3 (11:38→20:38)
[2019-03-08 17:30] VITALS: BP 109/53
[2019-03-08] MEDS: ATORVASTATIN 40 MG TABLET PO SCH (20:31)
[2019-03-08 21:37] VITALS: BP 112/59
[2019-03-09 05:19] VITALS: BP 122/73
[2019-03-09] MEDS: BLOOD SUGAR DIAGNOSTIC 1 EACH STRIP VI SCH ×4 (06:31→20:27)
[2019-03-09 07:30] VITALS: BP 149/59
[2019-03-09 07:38] LABS: BASOPHILS % (AUTO) 0.3 % (0.0-2.0); EOSINOPHILS # (AUTO) 0.1 K/uL (0.0-0.7); EOSINOPHILS % (AUTO) 0.8 % (0.0-7.0); HEMATOCRIT 23.8 % (36.7-47.1); HEMOGLOBIN 7.9 g/dL (12.5-16.3); LYMPHOCYTES # (AUTO) 0.7 K/uL (20.0-40.0); MEAN CORPUSCULAR HEMOGLOBIN 30.1 uug (23.8-33.4); MEAN CORPUSCULAR HGB CONC 33 g/dL (32.5-36.3); MEAN CORPUSCULAR VOLUME 91.2 fL (73.0-96.2); MONOCYTES # (AUTO) 1.3 K/uL (2.0-10.0); NEUTROPHILS # (AUTO) 12.7 K/uL (1.8-8.9); NEUTROPHILS % (AUTO) 84.9 % (38.5-71.5); PLATELET COUNT (AUTO) 288 K/uL (152-348); RED BLOOD CELL COUNT(AUTO) 2.61 MIL/uL (4.06-5.63); WHITE BLOOD COUNT (AUTO) 14.9 K/uL (3.6-10.2)
[2019-03-09 07:41] LABS: CARBON DIOXIDE 22 mmol/L (21-32); CHLORIDE 104 mmol/L (98-107); CREATININE 3.2 mg/dL (0.6-1.3); GLUCOSE 162 mg/dL (74-106); POTASSIUM 4.2 mmol/L (3.5-5.1)
[2019-03-09 07:50] LABS: UREA NITROGEN, BLOOD 86 mg/dL (7-18)
[2019-03-09] MEDS: CLOPIDOGREL 75 MG TABLET PO SCH (08:29)
[2019-03-09] MEDS: glipiZIDE 10 MG TABLET PO SCH (08:30)
[2019-03-09] MEDS: DOCUSATE SODIUM 100 MG CAPSULE PO SCH ×2 (08:30→20:33)
[2019-03-09] MEDS: CARVEDILOL 3.125 MG TABLET PO SCH ×2 (08:30→17:53)
[2019-03-09] MEDS: ENOXAPARIN SODIUM 30 MG/0.3 ML DISP.SYRIN SUBCUT SCH (08:32)
[2019-03-09] MEDS: HYDROCODONE/APAP 10-325 MG TABLET PO PRN ×2 (08:33→20:32)
[2019-03-09] MEDS ORDERED: LEVOFLOXACIN 500 MG/D5W 500 MG in PREMIXED 1 EACH IV SCH (12:00)
[2019-03-09] MEDS: INSULIN REGULAR, HUMAN 300 UNIT/3 ML VIAL SQ PRN ×2 (12:34→20:32)
[2019-03-09] MEDS: LEVOFLOXACIN 500 MG TABLET PO SCH (14:51)
[2019-03-09 16:00] VITALS: BP 147/67
[2019-03-09 20:20] VITALS: BP 114/42
[2019-03-09] MEDS: ATORVASTATIN 40 MG TABLET PO SCH (20:27)
[2019-03-10 05:34] VITALS: BP 152/60
[2019-03-10] MEDS: BLOOD SUGAR DIAGNOSTIC 1 EACH STRIP VI SCH ×4 (06:35→21:17)
[2019-03-10] MEDS: HYDROCODONE/APAP 10-325 MG TABLET PO PRN ×3 (06:47→21:14)
[2019-03-10 07:22] LABS: BASOPHILS % (AUTO) 0.2 % (0.0-2.0); EOSINOPHILS # (AUTO) 0.3 K/uL (0.0-0.7); HEMATOCRIT 24.2 % (36.7-47.1); HEMOGLOBIN 7.9 g/dL (12.5-16.3); LYMPHOCYTES # (AUTO) 0.9 K/uL (20.0-40.0); LYMPHOCYTES % (AUTO) 6.1 % (20.5-51.5); MEAN CORPUSCULAR HEMOGLOBIN 29.7 uug (23.8-33.4); MEAN CORPUSCULAR HGB CONC 33 g/dL (32.5-36.3); MEAN CORPUSCULAR VOLUME 90.9 fL (73.0-96.2); MONOCYTES # (AUTO) 1.4 K/uL (2.0-10.0); MONOCYTES % (AUTO) 9.3 % (0.0-11.0); NEUTROPHILS # (AUTO) 12.5 K/uL (1.8-8.9); NEUTROPHILS % (AUTO) 82.4 % (38.5-71.5); PLATELET COUNT (AUTO) 358 K/uL (152-348); RED BLOOD CELL COUNT(AUTO) 2.66 MIL/uL (4.06-5.63); WHITE BLOOD COUNT (AUTO) 15.1 K/uL (3.6-10.2)
[2019-03-10 07:31] LABS: CARBON DIOXIDE 20 mmol/L (21-32); CHLORIDE 103 mmol/L (98-107); CREATININE 2.9 mg/dL (0.6-1.3); GLUCOSE 95 mg/dL (74-106); POTASSIUM 3.9 mmol/L (3.5-5.1)
[2019-03-10 07:32] LABS: UREA NITROGEN, BLOOD 83 mg/dL (7-18)
[2019-03-10] MEDS: DOCUSATE SODIUM 100 MG CAPSULE PO SCH ×3 (09:00→21:14)
[2019-03-10] MEDS: CLOPIDOGREL 75 MG TABLET PO SCH (09:02)
[2019-03-10] MEDS: glipiZIDE 10 MG TABLET PO SCH (09:02)
[2019-03-10] MEDS: CARVEDILOL 3.125 MG TABLET PO SCH ×2 (09:03→17:32)
[2019-03-10 09:05] VITALS: BP 147/62
[2019-03-10] MEDS: ENOXAPARIN SODIUM 30 MG/0.3 ML DISP.SYRIN SUBCUT SCH (09:18)
[2019-03-10] MEDS: ACETAMINOPHEN 325 MG TABLET PO PRN (09:41)
[2019-03-10] MEDS: INSULIN REGULAR, HUMAN 300 UNIT/3 ML VIAL SQ PRN ×2 (11:55→21:19)
[2019-03-10 16:19] VITALS: BP 142/52
[2019-03-10 19:57] VITALS: BP 132/64
[2019-03-10] MEDS: ATORVASTATIN 40 MG TABLET PO SCH (21:14)
[2019-03-11 05:47] VITALS: BP 154/55
[2019-03-11] MEDS: BLOOD SUGAR DIAGNOSTIC 1 EACH STRIP VI SCH ×4 (06:18→20:47)
[2019-03-11] MEDS: DOCUSATE SODIUM 100 MG CAPSULE PO SCH ×2 (08:53→20:47)
[2019-03-11] MEDS: CLOPIDOGREL 75 MG TABLET PO SCH (08:54)
[2019-03-11] MEDS: glipiZIDE 10 MG TABLET PO SCH (08:55)
[2019-03-11] MEDS: HYDROCODONE/APAP 10-325 MG TABLET PO PRN (08:55)
[2019-03-11] MEDS: LEVOFLOXACIN 500 MG TABLET PO SCH (08:55)
[2019-03-11] MEDS: CARVEDILOL 3.125 MG TABLET PO SCH ×2 (08:55→17:45)
[2019-03-11] MEDS: ENOXAPARIN SODIUM 30 MG/0.3 ML DISP.SYRIN SUBCUT SCH (09:03)
[2019-03-11 10:30] VITALS: BP 130/56
[2019-03-11] MEDS: INSULIN REGULAR, HUMAN 300 UNIT/3 ML VIAL SQ PRN (11:12)
[2019-03-11 19:26] VITALS: BP 130/56
[2019-03-11] MEDS: ATORVASTATIN 40 MG TABLET PO SCH (20:43)
[2019-03-12] MEDS: LACTULOSE 20 G/30 ML LIQUID UDC PO PRN (05:45)
[2019-03-12] MEDS: HYDROCODONE/APAP 10-325 MG TABLET PO PRN ×2 (05:45→18:33)
[2019-03-12] MEDS: BLOOD SUGAR DIAGNOSTIC 1 EACH STRIP VI SCH ×4 (06:36→21:10)
[2019-03-12 07:08] LABS: BASOPHILS % (AUTO) 0.1 % (0.0-2.0); EOSINOPHILS # (AUTO) 0.1 K/uL (0.0-0.7); EOSINOPHILS % (AUTO) 1.3 % (0.0-7.0); HEMATOCRIT 23.1 % (36.7-47.1); HEMOGLOBIN 7.5 g/dL (12.5-16.3); LYMPHOCYTES # (AUTO) 0.7 K/uL (20.0-40.0); LYMPHOCYTES % (AUTO) 6.1 % (20.5-51.5); MEAN CORPUSCULAR HEMOGLOBIN 29.9 uug (23.8-33.4); MEAN CORPUSCULAR HGB CONC 32 g/dL (32.5-36.3); MEAN CORPUSCULAR VOLUME 92.4 fL (73.0-96.2); MONOCYTES # (AUTO) 1.2 K/uL (2.0-10.0); MONOCYTES % (AUTO) 10.7 % (0.0-11.0); NEUTROPHILS # (AUTO) 9.3 K/uL (1.8-8.9); NEUTROPHILS % (AUTO) 81.8 % (38.5-71.5); PLATELET COUNT (AUTO) 370 K/uL (152-348); WHITE BLOOD COUNT (AUTO) 11.4 K/uL (3.6-10.2)
[2019-03-12 07:11] LABS: CARBON DIOXIDE 21 mmol/L (21-32); CHLORIDE 102 mmol/L (98-107); CREATININE 2.8 mg/dL (0.6-1.3); GLUCOSE 67 mg/dL (74-106); MAGNESIUM 2.1 mg/dL (1.8-2.4); POTASSIUM 4.1 mmol/L (3.5-5.1)
[2019-03-12 07:15] LABS: UREA NITROGEN, BLOOD 85 mg/dL (7-18)
[2019-03-12 07:34] VITALS: BP 131/57
[2019-03-12 07:40] LABS: *BILIRUBIN,URIN NEGATIVE (NEGATIVE); *BLOOD, URINE NEGATIVE (NEGATIVE); *CLARITY,URINE SLIGHTLY CLOUDY (CLEAR); *COLOR,URINE YELLOW (YELLOW); *KETONES,URINE NEGATIVE (NEGATIVE); *UROBILINOGEN,URINE 0.2 E.U./dl (NORMAL); LEUKOCYTE ESTERASE ,URINE NEGATIVE (NEGATIVE); NITRITE, URINE NEGATIVE (NEGATIVE); PH,URINE 5.5 (5.0-8.0); UGLUCOSE NEGATIVE (NEGATIVE)
[2019-03-12 08:30] VITALS: BP 139/62
[2019-03-12] MEDS: CARVEDILOL 3.125 MG TABLET PO SCH ×2 (08:41→17:17)
[2019-03-12] MEDS: CLOPIDOGREL 75 MG TABLET PO SCH (08:41)
[2019-03-12] MEDS: DOCUSATE SODIUM 100 MG CAPSULE PO SCH ×2 (08:42→21:08)
[2019-03-12] MEDS: glipiZIDE 10 MG TABLET PO SCH (08:42)
[2019-03-12] MEDS: ENOXAPARIN SODIUM 30 MG/0.3 ML DISP.SYRIN SUBCUT SCH (08:46)
[2019-03-12] MEDS: TAMSULOSIN HCL 0.4 MG CAP.SR.24H PO SCH (15:22)
[2019-03-12 17:00] VITALS: BP 142/55
[2019-03-12 20:29] VITALS: BP 125/56
[2019-03-12] MEDS: ATORVASTATIN 40 MG TABLET PO SCH (21:08)
[2019-03-12] MEDS: INSULIN REGULAR, HUMAN 300 UNIT/3 ML VIAL SQ PRN (21:14)
[2019-03-13] MEDS: HYDROCODONE/APAP 10-325 MG TABLET PO PRN ×2 (05:15→10:23)
[2019-03-13] MEDS: TAMSULOSIN HCL 0.4 MG CAP.SR.24H PO SCH (05:15)
[2019-03-13 06:08] VITALS: BP 125/51
[2019-03-13] MEDS: BLOOD SUGAR DIAGNOSTIC 1 EACH STRIP VI SCH ×4 (06:28→21:23)
[2019-03-13 08:00] VITALS: BP 102/51
[2019-03-13] MEDS: CARVEDILOL 3.125 MG TABLET PO SCH ×2 (08:00→17:02)
[2019-03-13] MEDS: LEVOFLOXACIN 500 MG TABLET PO SCH (08:21)
[2019-03-13] MEDS: glipiZIDE 10 MG TABLET PO SCH (08:21)
[2019-03-13] MEDS: CLOPIDOGREL 75 MG TABLET PO SCH (08:21)
[2019-03-13] MEDS: DOCUSATE SODIUM 100 MG CAPSULE PO SCH ×2 (08:21→21:23)
[2019-03-13] MEDS: ENOXAPARIN SODIUM 30 MG/0.3 ML DISP.SYRIN SUBCUT SCH (08:22)
[2019-03-13] MEDS: INSULIN REGULAR, HUMAN 300 UNIT/3 ML VIAL SQ PRN ×2 (08:34→16:56)
[2019-03-13 16:32] VITALS: BP 136/68
[2019-03-13] MEDS: ATORVASTATIN 40 MG TABLET PO SCH (21:23)
[2019-03-13 22:41] VITALS: BP 140/60
[2019-03-14] MEDS: HYDROCODONE/APAP 10-325 MG TABLET PO PRN ×3 (05:05→14:19)
[2019-03-14 05:25] VITALS: BP 131/55
[2019-03-14] MEDS: BLOOD SUGAR DIAGNOSTIC 1 EACH STRIP VI SCH ×4 (06:36→20:36)
[2019-03-14 07:04] LABS: BASOPHILS % (AUTO) 0.3 % (0.0-2.0); EOSINOPHILS # (AUTO) 0.3 K/uL (0.0-0.7); EOSINOPHILS % (AUTO) 1.7 % (0.0-7.0); HEMATOCRIT 24.2 % (36.7-47.1); HEMOGLOBIN 7.9 g/dL (12.5-16.3); LYMPHOCYTES # (AUTO) 1.1 K/uL (20.0-40.0); LYMPHOCYTES % (AUTO) 7.5 % (20.5-51.5); MEAN CORPUSCULAR HEMOGLOBIN 29.5 uug (23.8-33.4); MEAN CORPUSCULAR HGB CONC 33 g/dL (32.5-36.3); MEAN CORPUSCULAR VOLUME 90.4 fL (73.0-96.2); MONOCYTES # (AUTO) 1.4 K/uL (2.0-10.0); MONOCYTES % (AUTO) 9.4 % (0.0-11.0); NEUTROPHILS # (AUTO) 12.1 K/uL (1.8-8.9); NEUTROPHILS % (AUTO) 81.1 % (38.5-71.5); PLATELET COUNT (AUTO) 431 K/uL (152-348); RED BLOOD CELL COUNT(AUTO) 2.68 MIL/uL (4.06-5.63); WHITE BLOOD COUNT (AUTO) 14.9 K/uL (3.6-10.2)
[2019-03-14 07:30] VITALS: BP 115/45
[2019-03-14 07:30] LABS: CARBON DIOXIDE 22 mmol/L (21-32); CHLORIDE 106 mmol/L (98-107); CREATININE 2.7 mg/dL (0.6-1.3); GLUCOSE 145 mg/dL (74-106); MAGNESIUM 2.2 mg/dL (1.8-2.4); PHOSPHOROUS 3.9 mg/dL (2.5-4.9); POTASSIUM 4.3 mmol/L (3.5-5.1)
[2019-03-14 07:58] LABS: UREA NITROGEN, BLOOD 80 mg/dL (7-18)
[2019-03-14] MEDS: CARVEDILOL 3.125 MG TABLET PO SCH ×2 (08:00→17:07)
[2019-03-14] MEDS: INSULIN REGULAR, HUMAN 300 UNIT/3 ML VIAL SQ PRN ×3 (08:01→20:36)
[2019-03-14] MEDS: ENOXAPARIN SODIUM 30 MG/0.3 ML DISP.SYRIN SUBCUT SCH (08:07)
[2019-03-14] MEDS: TAMSULOSIN HCL 0.4 MG CAP.SR.24H PO SCH (08:09)
[2019-03-14] MEDS: DOCUSATE SODIUM 100 MG CAPSULE PO SCH ×2 (08:09→20:36)
[2019-03-14] MEDS: CLOPIDOGREL 75 MG TABLET PO SCH (08:09)
[2019-03-14] MEDS: glipiZIDE 10 MG TABLET PO SCH (08:11)
[2019-03-14] MEDS ORDERED: TAMSULOSIN HCL 0.4 MG CAP.SR.24H PO SCH (09:00)
[2019-03-14 16:30] VITALS: BP 134/52
[2019-03-14 20:32] VITALS: BP 116/54
[2019-03-14] MEDS: ATORVASTATIN 40 MG TABLET PO SCH (20:36)
[2019-03-15 05:30] VITALS: BP 144/60
[2019-03-15] MEDS: BLOOD SUGAR DIAGNOSTIC 1 EACH STRIP VI SCH ×4 (06:31→21:21)
[2019-03-15 06:49] LABS: BASOPHILS # (AUTO) 0.1 K/uL (0.0-8.0); BASOPHILS % (AUTO) 0.3 % (0.0-2.0); EOSINOPHILS # (AUTO) 0.3 K/uL (0.0-0.7); EOSINOPHILS % (AUTO) 1.8 % (0.0-7.0); HEMATOCRIT 23.6 % (36.7-47.1); HEMOGLOBIN 7.6 g/dL (12.5-16.3); LYMPHOCYTES # (AUTO) 1.3 K/uL (20.0-40.0); LYMPHOCYTES % (AUTO) 7.5 % (20.5-51.5); MEAN CORPUSCULAR HEMOGLOBIN 29.8 uug (23.8-33.4); MEAN CORPUSCULAR HGB CONC 32 g/dL (32.5-36.3); MEAN CORPUSCULAR VOLUME 92.3 fL (73.0-96.2); MONOCYTES # (AUTO) 1.6 K/uL (2.0-10.0); MONOCYTES % (AUTO) 8.9 % (0.0-11.0); NEUTROPHILS # (AUTO) 14.3 K/uL (1.8-8.9); NEUTROPHILS % (AUTO) 81.5 % (38.5-71.5); PLATELET COUNT (AUTO) 403 K/uL (152-348); RED BLOOD CELL COUNT(AUTO) 2.56 MIL/uL (4.06-5.63); WHITE BLOOD COUNT (AUTO) 17.6 K/uL (3.6-10.2)
[2019-03-15 07:05] LABS: ALANINE AMINOTRANSFERASE 14 U/L (16-63); ALKALINE PHOSPHATASE 96 U/L (50-136); ASPARTATE AMINOTRANSFERASE 21 U/L (15-37); BILIRUBIN,TOTAL 0.6 mg/dL (0.2-1.0); CARBON DIOXIDE 24 mmol/L (21-32); CHLORIDE 108 mmol/L (98-107); CREATININE 2.5 mg/dL (0.6-1.3); GLUCOSE 148 mg/dL (74-106); MAGNESIUM 2.2 mg/dL (1.8-2.4); POTASSIUM 5.1 mmol/L (3.5-5.1); UREA NITROGEN, BLOOD 79 mg/dL (7-18)
[2019-03-15 07:30] VITALS: BP 125/55
[2019-03-15] MEDS: ENOXAPARIN SODIUM 30 MG/0.3 ML DISP.SYRIN SUBCUT SCH (07:57)
[2019-03-15] MEDS: INSULIN REGULAR, HUMAN 300 UNIT/3 ML VIAL SQ PRN ×4 (07:59→21:23)
[2019-03-15] MEDS: TAMSULOSIN HCL 0.4 MG CAP.SR.24H PO SCH (08:11)
[2019-03-15] MEDS: HYDROCODONE/APAP 10-325 MG TABLET PO PRN ×2 (08:11→14:24)
[2019-03-15] MEDS: CLOPIDOGREL 75 MG TABLET PO SCH (08:11)
[2019-03-15] MEDS: DOCUSATE SODIUM 100 MG CAPSULE PO SCH ×2 (08:11→21:17)
[2019-03-15] MEDS: CARVEDILOL 3.125 MG TABLET PO SCH ×2 (08:12→17:38)
[2019-03-15] MEDS: LEVOFLOXACIN 500 MG TABLET PO SCH (08:12)
[2019-03-15] MEDS: glipiZIDE 10 MG TABLET PO SCH (08:13)
[2019-03-15 08:52] LABS: BAND % (MANUAL) 1 % (0-10); EOSINOPHILS % (MANUAL) 1 % (0-8); LYMPHOCYTES % (MANUAL) 6 % (20-40); MONOCYTES % (MANUAL) 5 % (2-10); NEUTROPHILS % (MANUAL) 87 % (42-75)
[2019-03-15 16:00] VITALS: BP 113/50
[2019-03-15] MEDS: ATORVASTATIN 40 MG TABLET PO SCH (21:17)
[2019-03-15 23:08] VITALS: BP 107/48
[2019-03-16 04:12] VITALS: BP 150/67
[2019-03-16] MEDS: BLOOD SUGAR DIAGNOSTIC 1 EACH STRIP VI SCH ×4 (06:30→20:43)
[2019-03-16 07:53] VITALS: BP 167/72
[2019-03-16] MEDS: INSULIN REGULAR, HUMAN 300 UNIT/3 ML VIAL SQ PRN ×4 (07:55→20:46)
[2019-03-16] MEDS: LACTULOSE 20 G/30 ML LIQUID UDC PO PRN (07:58)
[2019-03-16] MEDS: CARVEDILOL 3.125 MG TABLET PO SCH ×2 (08:00→18:00)
[2019-03-16] MEDS: DOCUSATE SODIUM 100 MG CAPSULE PO SCH ×2 (08:01→20:40)
[2019-03-16] MEDS: glipiZIDE 10 MG TABLET PO SCH ×2 (08:01→08:27)
[2019-03-16] MEDS: CLOPIDOGREL 75 MG TABLET PO SCH (08:01)
[2019-03-16] MEDS: ENOXAPARIN SODIUM 30 MG/0.3 ML DISP.SYRIN SUBCUT SCH (08:03)
[2019-03-16] MEDS: TAMSULOSIN HCL 0.4 MG CAP.SR.24H PO SCH (08:22)
[2019-03-16] MEDS: HYDROCODONE/APAP 10-325 MG TABLET PO PRN (08:53)
[2019-03-16] MEDS ORDERED: MISCELLANEOUS MED XX PRN (13:45)
[2019-03-16] MEDS ORDERED: LIDOCAINE 2% 30 ML JELLY MM PRN (14:00)
[2019-03-16 16:00] VITALS: BP 109/50
[2019-03-16 19:54] VITALS: BP 103/55
[2019-03-16] MEDS: ATORVASTATIN 40 MG TABLET PO SCH (20:40)
[2019-03-17 06:03] VITALS: BP 149/67
[2019-03-17] MEDS: BLOOD SUGAR DIAGNOSTIC 1 EACH STRIP VI SCH ×4 (06:15→20:31)
[2019-03-17 07:44] VITALS: BP 149/64
[2019-03-17] MEDS: CARVEDILOL 3.125 MG TABLET PO SCH ×2 (08:11→17:04)
[2019-03-17] MEDS: DOCUSATE SODIUM 100 MG CAPSULE PO SCH ×2 (08:11→20:28)
[2019-03-17] MEDS: LEVOFLOXACIN 500 MG TABLET PO SCH (08:11)
[2019-03-17] MEDS: TAMSULOSIN HCL 0.4 MG CAP.SR.24H PO SCH (08:11)
[2019-03-17] MEDS: CLOPIDOGREL 75 MG TABLET PO SCH (08:12)
[2019-03-17] MEDS: LINAGLIPTIN 5 MG TABLET PO SCH (08:12)
[2019-03-17] MEDS: ENOXAPARIN SODIUM 30 MG/0.3 ML DISP.SYRIN SUBCUT SCH (08:13)
[2019-03-17] MEDS: INSULIN REGULAR, HUMAN 300 UNIT/3 ML VIAL SQ PRN ×3 (08:24→16:54)
[2019-03-17] MEDS: HYDROCODONE/APAP 10-325 MG TABLET PO PRN ×2 (08:43→14:51)
[2019-03-17 15:06] VITALS: BP 120/90
[2019-03-17 20:04] VITALS: BP 149/74
[2019-03-17] MEDS: ATORVASTATIN 40 MG TABLET PO SCH (20:28)
[2019-03-18 05:25] VITALS: BP 146/71
[2019-03-18] MEDS: BLOOD SUGAR DIAGNOSTIC 1 EACH STRIP VI SCH ×4 (06:17→20:43)
[2019-03-18 08:00] VITALS: BP 134/60
[2019-03-18] MEDS: CLOPIDOGREL 75 MG TABLET PO SCH (08:25)
[2019-03-18] MEDS: DOCUSATE SODIUM 100 MG CAPSULE PO SCH ×2 (08:25→20:42)
[2019-03-18] MEDS: TAMSULOSIN HCL 0.4 MG CAP.SR.24H PO SCH (08:25)
[2019-03-18] MEDS: LINAGLIPTIN 5 MG TABLET PO SCH (08:26)
[2019-03-18] MEDS: CARVEDILOL 3.125 MG TABLET PO SCH ×2 (08:26→17:21)
[2019-03-18] MEDS: HYDROCODONE/APAP 10-325 MG TABLET PO PRN ×2 (08:27→12:35)
[2019-03-18] MEDS: INSULIN REGULAR, HUMAN 300 UNIT/3 ML VIAL SQ PRN ×3 (08:33→17:22)
[2019-03-18] MEDS: ENOXAPARIN SODIUM 30 MG/0.3 ML DISP.SYRIN SUBCUT SCH (08:35)
[2019-03-18 17:26] VITALS: BP 118/61
[2019-03-18] MEDS: ATORVASTATIN 40 MG TABLET PO SCH (20:42)
[2019-03-18 21:36] VITALS: BP 131/51
[2019-03-19] MEDS: HYDROCODONE/APAP 10-325 MG TABLET PO PRN (01:49)
[2019-03-19 06:40] LABS: BASOPHILS % (AUTO) 0.3 % (0.0-2.0); NEUTROPHILS # (AUTO) 11.5 K/uL (1.8-8.9)
[2019-03-19] MEDS: BLOOD SUGAR DIAGNOSTIC 1 EACH STRIP VI SCH ×4 (06:41→20:30)
[2019-03-19 06:42] LABS: EOSINOPHILS # (AUTO) 0.3 K/uL (0.0-0.7); EOSINOPHILS % (AUTO) 2.2 % (0.0-7.0); LYMPHOCYTES # (AUTO) 1.1 K/uL (20.0-40.0); LYMPHOCYTES % (AUTO) 7.9 % (20.5-51.5); MEAN CORPUSCULAR HEMOGLOBIN 29.1 uug (23.8-33.4); MEAN CORPUSCULAR HGB CONC 32 g/dL (32.5-36.3); MEAN CORPUSCULAR VOLUME 90.5 fL (73.0-96.2); MONOCYTES # (AUTO) 1.1 K/uL (2.0-10.0); MONOCYTES % (AUTO) 7.6 % (0.0-11.0); PLATELET COUNT (AUTO) 404 K/uL (152-348); RED BLOOD CELL COUNT(AUTO) 2.54 MIL/uL (4.06-5.63)
[2019-03-19 06:50] VITALS: BP 133/55
[2019-03-19 06:50] LABS: HEMOGLOBIN 7.4 g/dL (12.5-16.3)
[2019-03-19 06:56] LABS: ALANINE AMINOTRANSFERASE 14 U/L (16-63); ALKALINE PHOSPHATASE 90 U/L (50-136); ASPARTATE AMINOTRANSFERASE 17 U/L (15-37); BILIRUBIN,TOTAL 0.5 mg/dL (0.2-1.0); CARBON DIOXIDE 25 mmol/L (21-32); CHLORIDE 108 mmol/L (98-107); CREATININE 2.5 mg/dL (0.6-1.3); GLUCOSE 161 mg/dL (74-106); MAGNESIUM 2.1 mg/dL (1.8-2.4); POTASSIUM 4.7 mmol/L (3.5-5.1); TOTAL PROTEIN, SERUM 5.7 g/dL (6.4-8.2); UREA NITROGEN, BLOOD 68 mg/dL (7-18)
[2019-03-19] MEDS: INSULIN REGULAR, HUMAN 300 UNIT/3 ML VIAL SQ PRN ×3 (07:49→20:32)
[2019-03-19 08:00] VITALS: BP 120/70
[2019-03-19] MEDS: DOCUSATE SODIUM 100 MG CAPSULE PO SCH ×2 (08:23→20:30)
[2019-03-19] MEDS: LINAGLIPTIN 5 MG TABLET PO SCH (08:23)
[2019-03-19] MEDS: TAMSULOSIN HCL 0.4 MG CAP.SR.24H PO SCH (08:23)
[2019-03-19] MEDS: CLOPIDOGREL 75 MG TABLET PO SCH (08:23)
[2019-03-19] MEDS: LEVOFLOXACIN 500 MG TABLET PO SCH (08:24)
[2019-03-19] MEDS: CARVEDILOL 3.125 MG TABLET PO SCH ×2 (08:24→17:15)
[2019-03-19] MEDS: ENOXAPARIN SODIUM 30 MG/0.3 ML DISP.SYRIN SUBCUT SCH (08:26)
[2019-03-19 13:09] LABS: IRON, SERUM 29 ug/dL (50-175)
[2019-03-19 13:36] LABS: FERRITIN 107 ng/mL (26-388)
[2019-03-19] MEDS ORDERED: MAG HYDROX/AL HYDROX/SIMETH 30 ML LIQUID UDC PO PRN (16:45)
[2019-03-19 19:39] VITALS: BP 115/63
[2019-03-19] MEDS: ATORVASTATIN 40 MG TABLET PO SCH (20:30)
[2019-03-20 05:46] VITALS: BP 151/68
[2019-03-20] MEDS: BLOOD SUGAR DIAGNOSTIC 1 EACH STRIP VI SCH ×4 (06:31→20:47)
[2019-03-20 07:16] LABS: RED BLOOD CELL COUNT(AUTO) 2.59 MIL/UL (4.7-6.1); WHITE BLOOD COUNT (AUTO) 14.5 K/UL (4.0-11.2)
[2019-03-20 07:17] LABS: HEMOGLOBIN 7.7 G/DL (14.0-18.0); LYMPHOCYTES % (AUTO) 6.7 % (20.5-51.5); MEAN CORPUSCULAR HEMOGLOBIN 29.7 UUG (27.0-31.0); MEAN CORPUSCULAR HGB CONC 32 g/dL (32.0-37.0); MEAN CORPUSCULAR VOLUME 92.7 FL (82.0-92.0); NEUTROPHILS % (AUTO) 84.5 % (38.5-71.5); PLATELET COUNT (AUTO) 383 K/UL (150-450)
[2019-03-20 07:18] LABS: BASOPHILS % (AUTO) 0.3 % (0.0-2.0); EOSINOPHILS # (AUTO) 0.2 K/uL (0.0-0.7); EOSINOPHILS % (AUTO) 1.6 % (0.0-7.0); MONOCYTES % (AUTO) 6.9 % (0.0-11.0); NEUTROPHILS # (AUTO) 12.3 K/UL (1.8-8.9)
[2019-03-20 07:32] LABS: ALANINE AMINOTRANSFERASE 16 U/L (16-63); ALKALINE PHOSPHATASE 85 U/L (50-136); ASPARTATE AMINOTRANSFERASE 18 U/L (15-37); CREATININE 2.5 mg/dL (0.6-1.3); MAGNESIUM 2.2 mg/dL (1.8-2.4); PHOSPHOROUS 4.6 mg/dL (2.5-4.9)
[2019-03-20 07:33] LABS: BILIRUBIN,TOTAL 0.5 mg/dL (0.2-1.0); CARBON DIOXIDE 22 mmol/L (21-32); CHLORIDE 107 mmol/L (98-107); GLUCOSE 138 mg/dL (74-106); POTASSIUM 4.2 mmol/L (3.5-5.1); TOTAL PROTEIN, SERUM 5.9 g/dL (6.4-8.2)
[2019-03-20 07:34] LABS: UREA NITROGEN, BLOOD 65 mg/dL (7-18)
[2019-03-20] MEDS: LINAGLIPTIN 5 MG TABLET PO SCH (08:53)
[2019-03-20] MEDS: CLOPIDOGREL 75 MG TABLET PO SCH (08:53)
[2019-03-20] MEDS: CARVEDILOL 3.125 MG TABLET PO SCH ×2 (08:54→18:00)
[2019-03-20] MEDS: DOCUSATE SODIUM 100 MG CAPSULE PO SCH ×2 (08:54→20:47)
[2019-03-20] MEDS: PROTEIN SUPPLEMENT (PROSTAT) 30 ML LIQUID PO SCH (08:54)
[2019-03-20] MEDS: HYDROCODONE/APAP 10-325 MG TABLET PO PRN (08:56)
[2019-03-20] MEDS: FOLIC ACID/VITAMIN B COMP W-C TABLET PO SCH (09:09)
[2019-03-20] MEDS: INSULIN REGULAR, HUMAN 300 UNIT/3 ML VIAL SQ PRN ×3 (11:38→20:51)
[2019-03-20 16:00] VITALS: BP 110/54
[2019-03-20 19:39] LABS: *OCCULT BLOOD STOOL POSITIVE (NEGATIVE)
[2019-03-20 19:43] VITALS: BP 103/58
[2019-03-20] MEDS: ACETAMINOPHEN 325 MG TABLET PO PRN (20:46)
[2019-03-20] MEDS: TAMSULOSIN HCL 0.4 MG CAP.SR.24H PO SCH (20:47)
[2019-03-20] MEDS: ATORVASTATIN 10 MG TABLET PO SCH (20:47)
[2019-03-21 06:15] VITALS: BP 123/47
[2019-03-21] MEDS: BLOOD SUGAR DIAGNOSTIC 1 EACH STRIP VI SCH ×4 (06:31→20:48)
[2019-03-21] MEDS ORDERED: OMEPRAZOLE DR 40MG PO SCH (07:30)
[2019-03-21 08:00] VITALS: BP 158/57
[2019-03-21] MEDS: PROTEIN SUPPLEMENT (PROSTAT) 30 ML LIQUID PO SCH ×2 (08:00→08:45)
[2019-03-21] MEDS: CLOPIDOGREL 75 MG TABLET PO SCH (08:36)
[2019-03-21] MEDS: DOCUSATE SODIUM 100 MG CAPSULE PO SCH ×2 (08:36→20:48)
[2019-03-21] MEDS: CARVEDILOL 3.125 MG TABLET PO SCH ×2 (08:37→17:00)
[2019-03-21] MEDS: LINAGLIPTIN 5 MG TABLET PO SCH (08:37)
[2019-03-21] MEDS: FOLIC ACID/VITAMIN B COMP W-C TABLET PO SCH (08:38)
[2019-03-21] MEDS: LACTULOSE 20 G/30 ML LIQUID UDC PO PRN (10:39)
[2019-03-21] MEDS: INSULIN REGULAR, HUMAN 300 UNIT/3 ML VIAL SQ PRN ×3 (12:02→20:51)
[2019-03-21 16:25] VITALS: BP 132/60
[2019-03-21 17:40] LABS: *OCCULT BLOOD STOOL NEGATIVE (NEGATIVE)
[2019-03-21 19:39] VITALS: BP 95/50
[2019-03-21] MEDS: ACETAMINOPHEN 325 MG TABLET PO PRN (20:48)
[2019-03-21] MEDS: ATORVASTATIN 10 MG TABLET PO SCH (20:48)
[2019-03-21] MEDS: TAMSULOSIN HCL 0.4 MG CAP.SR.24H PO SCH (20:48)
[2019-03-22 05:24] VITALS: BP 131/56
[2019-03-22] MEDS: OMEPRAZOLE DR 40MG PO SCH (06:38)
[2019-03-22] MEDS: BLOOD SUGAR DIAGNOSTIC 1 EACH STRIP VI SCH ×4 (06:41→20:31)
[2019-03-22] MEDS: INSULIN REGULAR, HUMAN 300 UNIT/3 ML VIAL SQ PRN ×4 (07:49→20:31)
[2019-03-22 07:53] VITALS: BP 120/60
[2019-03-22] MEDS: PROTEIN SUPPLEMENT (PROSTAT) 30 ML LIQUID PO SCH (08:00)
[2019-03-22 08:08] LABS: CARBON DIOXIDE 22 mmol/L (21-32); CHLORIDE 107 mmol/L (98-107); GLUCOSE 159 mg/dL (74-106)
[2019-03-22 08:09] LABS: ALANINE AMINOTRANSFERASE 15 U/L (16-63); ALKALINE PHOSPHATASE 92 U/L (50-136); ASPARTATE AMINOTRANSFERASE 19 U/L (15-37); BILIRUBIN,TOTAL 0.4 mg/dL (0.1-1.0); CREATININE 2.3 mg/dL (0.6-1.3); MAGNESIUM 2.1 mg/dL (1.8-2.4); PHOSPHOROUS 4.5 mg/dL (2.5-4.9)
[2019-03-22 08:10] LABS: TOTAL PROTEIN, SERUM 5.7 g/dL (6.4-8.2); UREA NITROGEN, BLOOD 56 mg/dL (7-20)
[2019-03-22 08:12] LABS: HEMOGLOBIN 7.5 G/DL (14.0-18.0); RED BLOOD CELL COUNT(AUTO) 2.55 MIL/UL (4.7-6.1)
[2019-03-22 08:13] LABS: HEMATOCRIT 23.5 % (40-50); MEAN CORPUSCULAR HEMOGLOBIN 29.4 UUG (27.0-31.0); MEAN CORPUSCULAR HGB CONC 32 g/dL (32.0-37.0)
[2019-03-22 08:14] LABS: BASOPHILS % (AUTO) 0.3 % (0.0-2.0); EOSINOPHILS # (AUTO) 0.3 K/uL (0.0-0.7); EOSINOPHILS % (AUTO) 2.4 % (0.0-7.0); LYMPHOCYTES # (AUTO) 1.1 K/UL (0.8-4.8); LYMPHOCYTES % (AUTO) 10.1 % (20.5-51.5); MONOCYTES # (AUTO) 0.9 K/UL (0.1-1.30); MONOCYTES % (AUTO) 7.8 % (0.0-11.0); NEUTROPHILS # (AUTO) 8.8 K/UL (1.8-8.9); NEUTROPHILS % (AUTO) 79.4 % (38.5-71.5); PLATELET COUNT (AUTO) 329 K/UL (150-450)
[2019-03-22] MEDS: CLOPIDOGREL 75 MG TABLET PO SCH (08:21)
[2019-03-22] MEDS: DOCUSATE SODIUM 100 MG CAPSULE PO SCH ×2 (08:21→20:30)
[2019-03-22] MEDS: LINAGLIPTIN 5 MG TABLET PO SCH (08:21)
[2019-03-22] MEDS: FOLIC ACID/VITAMIN B COMP W-C TABLET PO SCH (08:21)
[2019-03-22] MEDS: CARVEDILOL 3.125 MG TABLET PO SCH ×2 (08:22→17:01)
[2019-03-22] MEDS: HYDROCODONE/APAP 10-325 MG TABLET PO PRN (08:28)
[2019-03-22 17:43] VITALS: BP 150/60
[2019-03-22] MEDS: ATORVASTATIN 10 MG TABLET PO SCH (20:30)
[2019-03-22] MEDS: TAMSULOSIN HCL 0.4 MG CAP.SR.24H PO SCH (20:30)
[2019-03-22 20:49] VITALS: BP 137/68
[2019-03-23] VITALS (9 sets, daily range): BP systolic 125–157; BP diastolic 53–69
[2019-03-23] MEDS: OMEPRAZOLE DR 40MG PO SCH (06:48)
[2019-03-23] MEDS: BLOOD SUGAR DIAGNOSTIC 1 EACH STRIP VI SCH ×4 (06:52→21:20)
[2019-03-23] MEDS: BISACODYL 10 MG SUPP.RECT RC PRN (06:54)
[2019-03-23] MEDS: CARVEDILOL 3.125 MG TABLET PO SCH ×2 (08:00→17:40)
[2019-03-23] MEDS: LINAGLIPTIN 5 MG TABLET PO SCH (09:29)
[2019-03-23] MEDS: CLOPIDOGREL 75 MG TABLET PO SCH (09:29)
[2019-03-23] MEDS: FOLIC ACID/VITAMIN B COMP W-C TABLET PO SCH (09:29)
[2019-03-23] MEDS: DOCUSATE SODIUM 100 MG CAPSULE PO SCH ×2 (09:29→22:25)
[2019-03-23] MEDS: PROTEIN SUPPLEMENT (PROSTAT) 30 ML LIQUID PO SCH (09:33)
[2019-03-23] MEDS: HYDROCODONE/APAP 10-325 MG TABLET PO PRN (09:33)
[2019-03-23] MEDS: INSULIN REGULAR, HUMAN 300 UNIT/3 ML VIAL SQ PRN ×3 (11:43→22:25)
[2019-03-23] MEDS: ATORVASTATIN 10 MG TABLET PO SCH (22:25)
[2019-03-23] MEDS: TAMSULOSIN HCL 0.4 MG CAP.SR.24H PO SCH (22:25)
[2019-03-24 06:15] VITALS: BP 122/73
[2019-03-24 06:29] LABS: BASOPHILS # (AUTO) 0.1 K/uL (0.0-8.0); BASOPHILS % (AUTO) 0.6 % (0.0-2.0); EOSINOPHILS # (AUTO) 0.3 K/uL (0.0-0.7); EOSINOPHILS % (AUTO) 2.9 % (0.0-7.0); HEMATOCRIT 26.1 % (36.7-47.1); HEMOGLOBIN 8.5 g/dL (12.5-16.3); LYMPHOCYTES # (AUTO) 1.1 K/uL (20.0-40.0); LYMPHOCYTES % (AUTO) 9.3 % (20.5-51.5); MEAN CORPUSCULAR HGB CONC 32 g/dL (32.5-36.3); MEAN CORPUSCULAR VOLUME 89.6 fL (73.0-96.2); MONOCYTES % (AUTO) 8.7 % (0.0-11.0); NEUTROPHILS # (AUTO) 8.9 K/uL (1.8-8.9); NEUTROPHILS % (AUTO) 78.5 % (38.5-71.5); PLATELET COUNT (AUTO) 323 K/uL (152-348); RED BLOOD CELL COUNT(AUTO) 2.91 MIL/uL (4.06-5.63); WHITE BLOOD COUNT (AUTO) 11.3 K/uL (3.6-10.2)
[2019-03-24] MEDS: OMEPRAZOLE DR 40MG PO SCH (06:31)
[2019-03-24] MEDS: BLOOD SUGAR DIAGNOSTIC 1 EACH STRIP VI SCH ×2 (06:32→12:13)
[2019-03-24 08:40] VITALS: BP 135/66
[2019-03-24] MEDS: CLOPIDOGREL 75 MG TABLET PO SCH (08:44)
[2019-03-24] MEDS: DOCUSATE SODIUM 100 MG CAPSULE PO SCH (08:44)
[2019-03-24] MEDS: LINAGLIPTIN 5 MG TABLET PO SCH (08:44)
[2019-03-24 08:45] VITALS: BP 135/66
[2019-03-24] MEDS: FOLIC ACID/VITAMIN B COMP W-C TABLET PO SCH (08:45)
[2019-03-24] MEDS: CARVEDILOL 3.125 MG TABLET PO SCH (08:45)
[2019-03-24] MEDS: PROTEIN SUPPLEMENT (PROSTAT) 30 ML LIQUID PO SCH (08:47)
[2019-03-24] MEDS: HYDROCODONE/APAP 10-325 MG TABLET PO PRN (08:48)
[2019-03-24] MEDS: INSULIN REGULAR, HUMAN 300 UNIT/3 ML VIAL SQ PRN ×2 (08:57→12:12)
[2019-03-24] MEDS ORDERED: MINERAL OIL/PETROLATUM,WHITE 57 GM TUBE TOP SCH (09:00)
== END 2019-03-24 15:25 | DRG 559 ==
PROVIDERS: ADMIT Physical Medicine & Rehabilitation Pain Medicine; ATTEND Physical Medicine & Rehabilitation Pain Medicine
PROC: 30233N1 Transfusion of Nonautologous Red Blood Cells into Peripheral Vein, Percutaneous Approach (ICD-10-PCS; principal; 2019-03-23)
DX: S72.142D Displaced intertrochanteric fracture of left femur, subsequent encounter for closed fracture with routine healing (principal); N17.0 Acute kidney failure with tubular necrosis; E43 Unspecified severe protein-calorie malnutrition; N18.4 Chronic kidney disease, stage 4 (severe); D68.59 Other primary thrombophilia; D62 Acute posthemorrhagic anemia; E87.1 Hypo-osmolality and hyponatremia; W01.0XXD Fall on same level from slipping, tripping and stumbling without subsequent striking against object, subsequent encounter; E11.22 Type 2 diabetes mellitus with diabetic chronic kidney disease; I12.9 Hypertensive chronic kidney disease with stage 1 through stage 4 chronic kidney disease, or unspecified chronic kidney disease; E11.51 Type 2 diabetes mellitus with diabetic peripheral angiopathy without gangrene; E78.5 Hyperlipidemia, unspecified; K59.00 Constipation, unspecified; D63.8 Anemia in other chronic diseases classified elsewhere; E11.65 Type 2 diabetes mellitus with hyperglycemia; N40.1 Benign prostatic hyperplasia with lower urinary tract symptoms; R33.8 Other retention of urine; Q78.9 Osteochondrodysplasia, unspecified; R19.5 Other fecal abnormalities
CPT/HCPCS: 36415; 70030-TC; 71045; 73502; 83550; 83735; 84100; 85025; 86850; 86900; 86901; 86920; 87040; 87086; A4663; C1758; J1650; J1815; J1956; P9016-BL; P9021